=== PATIENT | female | born 1955 | race Caucasian/White ===

== ENCOUNTER → 2017-02-02 | Outpatient (CLI) | payer OTHER ==
[~2017-02-02] MED LIST: ALLEGRA PO; CARDIZEM CD PO; DILAUDID PO; FISH OIL 1,2001 CAP PO; FLAXSEED OIL1000 M1 PO; FLONASE 0.05% N16 G1; PHENERGAN PO; PREDNISONE10 MG PO; TOPAMAX200 MG PO; VICODIN 5/500 T1 TAB PO; WOMEN'S DAILY1 EACH PO; ZESTORETIC 20/11 TAB PO
--- NOTE | ~2017-02-02 | CT55 ---
[facility] A Service of [facility] RADIOLOGY TEXT RESULTS PATIENT: ELEANOR BROOKS [facility] UNIT #: [id number] AGE: [address]: FLORINA OLEA MD SEX: F ORDER DR: [id number] [facility] [address] [place], [place] [address] [id number] O MR#: [id number] #: [id number] NAME: ELEANOR BROOKS. : 1955 SEX: F STUDY DATE/TIME: 02/02/2017 13:59 UNIT: [facility] ROOM: STUDY DESCRIPTION: CT Chest W Con Attending Physician: Florina Olea Referring Physician: Florina Olea Ordering Physician: Javier Olea M.D. Primary Care Physician: Florina Olea MEDICAL IMAGING REPORT This report is preliminary unless electronic signature is present EXAM CT scan of the chest with contrast HISTORY Cough for several months. Prior CT scan of the chest from 05/30/16 showed interstitial prominence in the far inferior-anterior aspect of the left upper lobe. The CT exam was performed with one or more of the following radiation dose reduction techniques: automatic exposure control, adjustment of mA and/or kV according to patient size, and iterative reconstruction. Axial 5 mm images were obtained through the chest with IV contrast. The patient was given 100 mL of Isovue-370. FINDINGS There is calcified granuloma in the left upper lobe. There is some minimal linear peripheral atelectasis or scarring in the left lower lobe and there is some minimal pericardial fat projecting out toward the chest wall along the lingula. The abnormality described in the prior report seems to have resolved There is no such interstitial prominence today. The right lung is clear. The thyroid gland is normal. The aorta is normal size and there is no mediastinal or hilar adenopathy. The visualized portions of the upper abdomen are normal. IMPRESSION 1. Essentially the study is normal. There is some very minimal linear atelectasis or scarring running parallel to the pleural surface in the left lower lobe laterally. I do not believe this is the same abnormality described in the previous report. That report described an anterior-inferior left lower lobe interstitial prominence which STS. [facility] A Service of [facility] RADIOLOGY TEXT RESULTS PATIENT: ELEANOR BROOKS [facility] 55 UNIT #: [id number] AGE: [address]: FLORINA OLEA MD SEX: F ORDER DR: seems to have resolved. 2. The study is otherwise normal. Dictated by... Ernesto Boateng M.D. THIS IS AN ELECTRONICALLY VERIFIED REPORT Ernesto Boateng M.D. at 02/05/2017 1:37 PM SANTHOSH/sayra TD: 02/05/2017 09:20 JOB #: [id number] MEDICAL IMAGING REPORT Page 1 of 1 COPY
[2017-02-02 15:16] LABS: POC - CREATININE 0.78 mg/dL (0.44-1.03); POC - GFR >60.0 mL/min (>60)
== END | disposition home or self-care (01) ==
LOC: CCAT 11:54
PROVIDERS: Family Medicine
DX: J18.9 Pneumonia, unspecified organism (principal); R05 Cough
CPT/HCPCS: 71260; 82565; Q9967